=== PATIENT | male | born 1935 | race Caucasian/White ===

== ENCOUNTER → 2016-11-07 | Outpatient (CLI) | payer MEDICARE | LOC: PCVCIMAG 08:38 | PROVIDERS: ATTEND Internal Medicine Cardiovascular Disease | DX: I71.4 Abdominal aortic aneurysm, without rupture (principal); I73.9 Peripheral vascular disease, unspecified; I42.9 Cardiomyopathy, unspecified; I25.5 Ischemic cardiomyopathy; I10 Essential (primary) hypertension; Z95.0 Presence of cardiac pacemaker | CPT/HCPCS: 93306; 93978 ==

== ENCOUNTER → 2018-01-09 | Outpatient (CLI) | payer MEDICARE ==
[~2018-01-09] MED LIST: REGADENOSON 0.4 MG/5 ML DISP.SYRIN. IV
== END | disposition home or self-care (01) ==
LOC: PCVCIMAG 10:26
DX: I71.4 Abdominal aortic aneurysm, without rupture (principal); I10 Essential (primary) hypertension; I25.10 Atherosclerotic heart disease of native coronary artery without angina pectoris; I73.9 Peripheral vascular disease, unspecified; J44.9 Chronic obstructive pulmonary disease, unspecified; I25.2 Old myocardial infarction; Z87.891 Personal history of nicotine dependence
CPT/HCPCS: 78452; 93017; 93978; A9500; J2785